=== PATIENT | female | born 1940 | race Caucasian/White ===

== ENCOUNTER 2016-05-11 13:34 | Outpatient (CLI) | payer MEDICARE, OTHER | END 2016-05-11 13:35 | disposition home or self-care (01) | DX: M48.06 Spinal stenosis, lumbar region (principal); M43.16 Spondylolisthesis, lumbar region; M71.38 Other bursal cyst, other site; M47.817 Spondylosis without myelopathy or radiculopathy, lumbosacral region ==

== ENCOUNTER 2018-06-11 09:13 | Outpatient (CLI) | payer MEDICARE, OTHER | END 2018-06-11 09:14 | disposition EMS.NT | LOC: EMS 09:13 | PROVIDERS: ATTEND Surgery | DX: S09.90XA Unspecified injury of head, initial encounter (principal); W00.0XXA Fall on same level due to ice and snow, initial encounter; Y92.007 Garden or yard of unspecified non-institutional (private) residence as the place of occurrence of the external cause; R51 Headache ==

== ENCOUNTER 2018-06-11 10:13 | Emergency (ER) | payer MEDICARE, OTHER ==
--- NOTE | 2018-06-11 11:09 | ED Physician Documentation ---
PD HPI HEAD INJURY - Stated complaint Stated Complaint: GLF - Chief complaint Chief Complaint: Trauma Hd/Nk - History obtained from History obtained from: Patient - History of Present Illness Mechanism of head injury: Fell Where head injury occurred: Home Timing - onset: Enter time (814), Today Location of injury: Back Quality of pain: Pain Associated symptoms: Nausea / vomiting. No: LOC, AMS, Amnesia, Neck pain, Paresthesias, Seizures, Ear drainage, Nasal drainage Symptoms improve with: Rest Symptoms worsen with: No: Palpation, Movement Contributing factors: No: Anticoagulated Similar symptoms before: Has not had sx before Recently seen: Not recently seen - Additional information Additional information: Previously well 77-year-old female on no medications was outside today when she slipped on the ice fell backwards and fell onto asphalt with ice. She contused the back of her head she did not have any loss of consciousness she did have a bit of a shock with all this and felt nauseous and vomited. She did see stars. She has now resolved all of her symptoms. She was seen at the scene by paramedics who recommended she come to the hospital for a CAT scan. Review of Systems Constitutional: denies: Fever Eyes: denies: Decreased vision Ears: denies: Ear pain Nose: denies: Rhinorrhea / runny nose, Congestion Throat: denies: Dental pain / toothache Cardiac: denies: Chest pain / pressure, Palpitations Respiratory: denies: Dyspnea, Cough GI: reports: Nausea (resolved), Vomiting. denies: Abdominal Pain : denies: Dysuria, Frequency Skin: denies: Rash Musculoskeletal: denies: Neck pain, Back pain, Extremity pain Neurologic: reports: Head injury. denies: Generalized weakness, Focal weakness, Numbness, Difficulty speaking, Confused, Altered mental status, Headache, LOC PD PAST MEDICAL HISTORY - Present Medications Home Medications: Ambulatory Orders Medication Instructions Recorded Confirmed No Known Home Medications 06/11/18 06/11/18 - Allergies Allergies/Adverse Reactions: Allergies Allergy/AdvReac Type Severity Reaction Status Date / Time No Known Drug Allergies Allergy Verified 06/11/18 10:20 PD ED PE NORMAL - Vitals Vital signs reviewed: Yes (hypertensive ) - General General: Alert and oriented X 3, No acute distress, Well developed/nourished - HEENT HEENT: Atraumatic, PERRL, EOMI, Ears normal, Moist mucous membranes, Pharynx benign - Neck Neck: Supple, no meningeal sign, No bony TTP - Cardiac Cardiac: RRR, No murmur - Respiratory Respiratory: No respiratory distress, Clear bilaterally - Abdomen Abdomen: Soft, Non tender - Back Back: No CVA TTP, No spinal TTP - Derm Derm: Normal color, Warm and dry, No rash - Extremities Extremities: No deformity, No edema - Neuro Neuro: Alert and oriented X 3, cloth shrinker 2-12 intact, No motor deficit, No sensory deficit, Normal speech Eye Opening: Spontaneous Motor: Obeys Commands Verbal: Oriented GCS Score: 15 - Psych Psych: Normal mood, Normal affect Results - Vitals Vitals: Vital Signs - 24 hr 06/11/18 10:18 Temperature 36.9 C Heart Rate 56 L Respiratory 18 Rate Blood Pressure 143/80 H O2 Saturation 100 Oxygen O2 Source Room air - Rads (name of study) CT head without Radiology: Prelim report reviewed (Impression: 1. No acute intracranial abnormality is identified.2 No acute fracture. 3 Mild parenchymal volume loss and chronic white matter changes.), EMP read indepedently, See rad report PD MEDICAL DECISION MAKING - ED course Complexity details: reviewed old records, reviewed results, re-evaluated patient, considered differential, d/w patient ED course: Previously well 77-year-old female with a fall onto the ice no loss of consciousness but with some vomiting immediately following the incident. She otherwise appears well and on exam there are no focal findings. Her symptoms are resolved. CT scan of the head is obtained based primarily on the patient's age. Departure - Departure Disposition: 01 Home, Self Care Clinical Impression: Concussion Qualifiers: Encounter type: initial encounter Loss of consciousness presence/duration: without LOC Qualified Code(s): S06.0X0A - Concussion without loss of consciousness, initial encounter Condition: Stable Instructions: ED Concussion Follow-Up: Amanda Virgen PA [Primary Care Provider] -
--- NOTE | 2018-06-11 12:16 | CT Report ---
Reason: fall on occiput vomiting Procedure Date: 06/11/2018 Accession Number: [id number] / [id number] Procedure: CT - Head W/O CPT Code: FULL RESULT: EXAM: CT HEAD EXAM DATE: 06/11/2018 11:51 AM. CLINICAL HISTORY: Fall on occiput vomiting. COMPARISON: None. TECHNIQUE: Multiaxial CT images were obtained from the foramen magnum to the vertex. Reformats: Sagittal and coronal. IV contrast: None. In accordance with CT protocol optimization, one or more of the following dose reduction techniques were utilized for this exam: automated exposure control, adjustment of mA and/or KV based on patient size, or use of iterative reconstructive technique. FINDINGS: Parenchyma: No evidence of an acute vascular insult or acute parenchymal hemorrhage. Parenchymal volume loss with periventricular regions of low attenuation. No midline shift. No mass-effect. Extraaxial Spaces: Extra-axial spaces are mildly prominent. No subdural or epidural collections identified. Ventricles: Normal in size and position. Sinuses and Orbits: Imaged paranasal sinuses, orbits, and mastoids show no significant abnormality. Bones: No evidence of fracture or calvarial defect. Other: Globes and orbits are unremarkable. IMPRESSION: 1. No acute intracranial abnormality is identified. 2. No acute fracture. 3. Mild parenchymal volume loss and chronic white matter changes. [facility]
[2018-06-11 12:59] VITALS: BP 138/80
== END 2018-06-11 12:58 | disposition home or self-care (01) ==
LOC: ED 10:13
DX: S06.0X0A Concussion without loss of consciousness, initial encounter (principal); W00.0XXA Fall on same level due to ice and snow, initial encounter; Y92.009 Unspecified place in unspecified non-institutional (private) residence as the place of occurrence of the external cause
CPT/HCPCS: 70450; 99283